=== PATIENT | female | born 1960 | race Two or more races ===

== ENCOUNTER 2017-03-31 19:42 | Emergency (ER) | payer MEDICAID ==
[~2017-03-31] VITALS: Ht 157.5 cm; Wt 83.9 kg
[2017-03-31 21:02] LABS: Urine Bilirubin Negative (Negative); Urine Blood TRACE /uL (Negative); Urine Color Yellow (Yellow); Urine Glucose 4+ mg/dL (Normal); Urine Ketone Negative (Negative); Urine Nitrite Negative (Negative); Urine RBC 2 /hpf (0 - 4); Urine Squamous Epithelial Cell FEW /hpf (<5); Urine Urobilinogen Normal (Negative); Urine pH 5.5 (5.0-8.0)
[2017-03-31 21:05] LABS: Basophils # (auto) 0.1 uL; Basophils % (auto) 1.2 % (0.0-2.0); Eosinophils # (auto) 0.4 uL; Eosinophils % (auto) 3.8 % (0.0-7.0); Hematocrit 44.6 % (36.0-46.0); Hemoglobin 14.7 g/dL (12.2-16.2); Lymphocytes # (auto) 1.8 uL; Mean Corpuscular Hemoglobin 26.5 pg (28.0-32.0); Mean Corpuscular Hgb Conc. 33.1 g/dL (32.0-36.0); Mean Corpuscular Volume 80.1 fL (80.0-100.0); Mean Platelet Volume 7.8 fL (6.9-10.8); Monocytes # (auto) 0.6 uL; Monocytes % (auto) 6.4 % (0.0-12.0); Neutrophils # (auto) 6.7 uL; Neutrophils % (auto) 69.6 % (37.0-80.0); Platelet Count (auto) 357 10^3/uL (140-450); Red Cell Distribution Width 13.7 % (11.8-14.3); White Blood Cell 9.7 10^3/uL (4.4-10.8)
[2017-03-31 21:14] LABS: Albumin 3.3 g/dL (3.4-5.0); Alkaline Phosphatase 177 U/L (45-117); Anion Gap 8 (5-15); Aspartate Aminotransferase 143 U/L (15-37); BUN/Creatinine Ratio 17.8; Bilirubin, Total 0.2 mg/dL (0.2-1.0); Blood Urea Nitrogen 13 mg/dL (7-18); Carbon Dioxide 23 mmol/L (21-32); Chloride 103 mmol/L (98-107); GFR African American 106 mL/min; GFR Non-African American 88 mL/min; Glucose 346 mg/dL (74-106); Sodium 134 mmol/L (136-145); Total Protein 8.8 g/dL (6.4-8.2)
[2017-03-31 21:16] LABS: Prothrombin Time 10.9 sec (9.37-12.3)
[2017-03-31 21:23] LABS: B-Type Natriuretic Peptide 42.98 pg/mL (0-100)
[2017-03-31 21:30] LABS: Temperature: 23.7 C (20.0-25.0)
[2017-04-01 00:26] VITALS: BP 142/81
== END 2017-04-01 02:17 | disposition home or self-care (01) ==
LOC: ER 19:52
DX: S46.912A Strain of unspecified muscle, fascia and tendon at shoulder and upper arm level, left arm, initial encounter (principal); E11.65 Type 2 diabetes mellitus with hyperglycemia; N39.0 Urinary tract infection, site not specified; R06.02 Shortness of breath; X58.XXXA Exposure to other specified factors, initial encounter; Y93.89 Activity, other specified; Y99.8 Other external cause status; Y92.89 Other specified places as the place of occurrence of the external cause
CPT/HCPCS: 36415; 71010; 80053; 81001; 82010; 82962; 83036; 83880; 84484; 85025; 85610; 85730; 93005; 99285; J7030

== ENCOUNTER 2023-05-10 10:37 | Inpatient (IN) | payer MEDICAID ==
[2023-05-10] VITALS (8 sets, daily range): BP systolic 140–159; BP diastolic 40–64; PULSE 69–78; RESP 15–100; TEMP 97.8–98.6; O2SAT 97–100
[~2023-05-10] VITALS: Ht 157.5 cm; Wt 78.2 kg
[2023-05-10 11:50] LABS: Mean Corpuscular Volume 52.4 fL (80.0-100.0); Monocytes # (auto) 0.5 10 ^3/uL (0-1.3); Neutrophils # (auto) 6.1 10 ^3/uL (1.6-8.6); Nucleated Red Blood Cells % 0.1 %
[2023-05-10 11:52] LABS: Basophils # (auto) 0.2 10 ^3/uL (0-0.2); Basophils % (auto) 2.1 % (0.0-2.0); Eosinophils # (auto) 0.4 10 ^3/uL (0-0.8); Eosinophils % (auto) 4.5 % (0.0-7.0); Hematocrit 20.3 % (36.0-46.0); Lymphocytes # (auto) 2.1 10 ^3/uL (0.4-5.4); Lymphocytes % (auto) 22.9 % (10.0-50.0); Mean Corpuscular Hemoglobin 14.9 pg (28.0-32.0); Mean Corpuscular Hgb Conc. 28.4 g/dL (32.0-36.0); Monocytes % (auto) 5.1 % (0.0-12.0); Neutrophils % (auto) 65.4 % (37.0-80.0); Red Blood Cells 3.88 10^6/uL (4.0-5.20); Red Cell Distribution Width 18.8 % (11.8-14.3); White Blood Cell 9.4 10^3/uL (4.4-10.8)
[2023-05-10 12:04] LABS: Alkaline Phosphatase 98 U/L (46-116); Carbon Dioxide 23 mmol/L (20-30); Chloride 109 mmol/L (98-107); Glucose 176 mg/dL (74-106); Potassium 4.3 mmol/L (3.5-5.1)
[2023-05-10 12:05] LABS: Albumin 4.6 g/dL (3.2-4.8); Anion Gap 7 (5-15); Aspartate Aminotransferase 9 U/L (13-40); BUN/Creatinine Ratio 17.8 (10.0-20.0); Bilirubin, Total 0.4 mg/dL (0.2-1.0); Blood Urea Nitrogen 16 mg/dL (9-23); Sodium 139 mmol/L (136-145); Total Protein 7.5 g/dL (5.7-8.2)
[2023-05-10 12:06] LABS: Hemoglobin 5.8 g/dL (12.2-16.2)
[2023-05-10 12:13] LABS: Alanine Aminotransferase < 9 U/L (7-40)
[2023-05-10 12:55] LABS: INR 1.03 (0.9-1.15); Partial Thromboplastin Time 25.9 SEC (24.5-34.5); Prothrombin Time 10.8 sec (9.3-11.8)
[2023-05-10 13:17] LABS: Platelet Estimate Increased
[2023-05-10 13:19] LABS: Hypochromia Marked
[2023-05-10 14:01] LABS: Urine Bacteria NONE SEEN /hpf (None Seen); Urine Blood Negative /uL (Negative); Urine Clarity Clear (Clear); Urine Color Yellow (Yellow); Urine Hyaline Cast FEW /lpf (0 - 2); Urine Protein, UAD Negative (Negative); Urine Urobilinogen Normal (Negative); Urine WBC <1 /hpf (0 - 5); Urine pH 5.5 (5.0-8.0)
[2023-05-10] MEDS ORDERED: ONDANSETRON HCL 4 MG/2 ML VIAL IV PRN (17:15)
[2023-05-10] MEDS ORDERED: MORPHINE SULFATE INJ 2 MG/ml SYRG IV PRN ×2 (17:15)
[2023-05-10] MEDS ORDERED: NITROGLYCERIN 0.4 MG SL TAB SL PRN (17:15)
[2023-05-10] MEDS ORDERED: D5W/SOD CHL 0.45% 1,000 ML IV ONE (17:15)
[2023-05-10] MEDS ORDERED: DEXTROSE (50%) 50ML SYRG IV ONE (17:30)
[2023-05-10] MEDS: PANTOPRAZOLE 40mg/50ML NS AE 50 ML IV SCH ×2 (18:34→22:25)
[2023-05-10] MEDS ORDERED: ACCU-CHEK COMFORT CURVE STRIP VI ONE (22:00)
[2023-05-10] MEDS ORDERED: InsuLIN REG 1unit/0.01ml Soln (100units/ml) SC ONE (22:00)
[2023-05-11] VITALS (8 sets, daily range): BP systolic 119–149; BP diastolic 40–71; PULSE 58–75; RESP 11–22; TEMP 97.8–98; O2SAT 99–100
[2023-05-11] MEDS: PANTOPRAZOLE 40mg/50ML NS AE 50 ML IV SCH ×5 (03:15→23:14)
[2023-05-11] MEDS ORDERED: PANTOPRAZOLE 40 MG/10 ML VIAL INJ IV ONE (04:21)
[2023-05-11 05:18] LABS: Eosinophils # (auto) 0.4 10 ^3/uL (0-0.8); Lymphocytes # (auto) 1.8 10 ^3/uL (0.4-5.4); Monocytes # (auto) 0.7 10 ^3/uL (0-1.3); White Blood Cell 9.7 10^3/uL (4.4-10.8)
[2023-05-11 05:20] LABS: Basophils # (auto) 0.1 10 ^3/uL (0-0.2); Eosinophils % (auto) 4.4 % (0.0-7.0); Hematocrit 28.4 % (36.0-46.0); Hemoglobin 8.2 g/dL (12.2-16.2); Lymphocytes % (auto) 18.8 % (10.0-50.0); Mean Corpuscular Hemoglobin 17.5 pg (28.0-32.0); Mean Corpuscular Hgb Conc. 28.9 g/dL (32.0-36.0); Mean Corpuscular Volume 60.5 fL (80.0-100.0); Neutrophils # (auto) 6.7 10 ^3/uL (1.6-8.6); Neutrophils % (auto) 68.8 % (37.0-80.0)
[2023-05-11 05:21] LABS: Red Cell Distribution Width 29.3 % (11.8-14.3)
[2023-05-11 05:39] LABS: Albumin 4.2 g/dL (3.2-4.8); Alkaline Phosphatase 100 U/L (46-116); Anion Gap 8 (5-15); Aspartate Aminotransferase 14 U/L (13-40); BUN/Creatinine Ratio 13.5 (10.0-20.0); Blood Urea Nitrogen 10 mg/dL (9-23); Calcium 8.9 mg/dL (8.7-10.4); Carbon Dioxide 21 mmol/L (20-30); Chloride 110 mmol/L (98-107); Glucose 82 mg/dL (74-106); Sodium 139 mmol/L (136-145)
[2023-05-11 05:40] LABS: Alanine Aminotransferase < 9 U/L (7-40); Bilirubin, Total 1.2 mg/dL (0.2-1.0)
[2023-05-11 05:49] LABS: Anisocytosis Marked; Hypochromia Marked; Platelet Estimate Adequate; Stomatocytes Few
[2023-05-11] MEDS ORDERED: DEXTROSE (50%) 50ML SYRG IV PRN (15:45)
[2023-05-11] MEDS: LISINOPRIL 20 MG TAB PO SCH (15:56)
[2023-05-11] MEDS: ACCU-CHEK COMFORT CURVE STRIP VI SCH ×2 (17:00→22:40)
[2023-05-11] MEDS: InsuLIN REG 1unit/0.01ml Soln (100units/ml) SC SCH ×2 (17:00→22:00)
[2023-05-12] VITALS (9 sets, daily range): BP systolic 101–117; BP diastolic 44–94; PULSE 62–80; RESP 13–18; TEMP 97.2–98.1; O2SAT 95–100
[2023-05-12] MEDS: PANTOPRAZOLE 40mg/50ML NS AE 50 ML IV SCH ×2 (05:19→09:01)
[2023-05-12 06:03] LABS: Basophils # (auto) 0.1 10 ^3/uL (0-0.2); Eosinophils # (auto) 0.5 10 ^3/uL (0-0.8); Hemoglobin 8.4 g/dL (12.2-16.2); Monocytes # (auto) 0.7 10 ^3/uL (0-1.3)
[2023-05-12 06:04] LABS: Chloride 109 mmol/L (98-107); Potassium 4.1 mmol/L (3.5-5.1); Sodium 140 mmol/L (136-145)
[2023-05-12 06:05] LABS: Anion Gap 9 (5-15); Basophils % (auto) 1.2 % (0.0-2.0); Calcium 9.1 mg/dL (8.5-10.1); Carbon Dioxide 22 mmol/L (20-30); Eosinophils % (auto) 5.1 % (0.0-7.0); Hematocrit 28.2 % (36.0-46.0); Lymphocytes % (auto) 20.1 % (10.0-50.0); Mean Corpuscular Hemoglobin 17.8 pg (28.0-32.0); Mean Corpuscular Hgb Conc. 29.7 g/dL (32.0-36.0); Mean Corpuscular Volume 59.8 fL (80.0-100.0); Monocytes % (auto) 7.2 % (0.0-12.0); Neutrophils # (auto) 6.7 10 ^3/uL (1.6-8.6); Neutrophils % (auto) 66.4 % (37.0-80.0); Nucleated Red Blood Cells % 0.1 %; Red Blood Cells 4.71 10^6/uL (4.0-5.20)
[2023-05-12 06:09] LABS: Red Cell Distribution Width 30.1 % (11.8-14.3)
[2023-05-12 06:10] LABS: Blood Urea Nitrogen 9 mg/dL (9-23); Glucose 123 mg/dL (74-106); Triglycerides 160 mg/dL (< 150)
[2023-05-12 06:11] LABS: LDL Cholesterol 102 mg/dL (< 100)
[2023-05-12 06:12] LABS: Cholesterol 154 mg/dL (< 200); HDL Cholesterol 25 mg/dL (40-59)
[2023-05-12] MEDS: InsuLIN REG 1unit/0.01ml Soln (100units/ml) SC SCH ×4 (06:24→22:21)
[2023-05-12] MEDS: ACCU-CHEK COMFORT CURVE STRIP VI SCH ×4 (06:24→22:04)
[2023-05-12 06:58] LABS: Anisocytosis Marked; Hypochromia Marked; Platelet Estimate Adequate
[2023-05-12 06:59] LABS: Ovalocytes FEW; Target Cell FEW
[2023-05-12] MEDS: LISINOPRIL 20 MG TAB PO SCH (09:02)
[2023-05-12] MEDS ORDERED: NALOXONE HCL 0.4 MG/ML VIAL ONE (11:19)
[2023-05-12] MEDS ORDERED: SODIUM CHLORIDE LOCK 10 ML ONE (11:19)
[2023-05-12] MEDS ORDERED: FLUMAZENIL 0.1 MG/ML INJ 10ML MDV IV ONE (11:19)
[2023-05-12] MEDS ORDERED: LIDOCAINE VISCOUS 2% 15ML UD ONE (11:19)
[2023-05-12] MEDS ORDERED: MIDAZOLAM HCL 5 MG/ML-1ML VIAL ONE (11:20)
[2023-05-12] MEDS ORDERED: fentaNYL CITRATE 100 MCG/2 ML VL ONE (11:21)
[2023-05-12] MEDS: diphenhdrAMINE HCL 50 MG/1 ML VL ONE ×2 (12:47→12:50)
[2023-05-12] MEDS: SUCRALFATE 1 GM/10 ML ORAL SUSP PO SCH ×2 (16:41→21:54)
[2023-05-12] MEDS: PANTOPRAZOLE 40 MG TAB PO SCH (21:54)
[2023-05-13 05:00] VITALS: BP 92/55; PULSE 64; RESP 16; TEMP 98.2; O2SAT 95
[2023-05-13] MEDS: InsuLIN REG 1unit/0.01ml Soln (100units/ml) SC SCH ×2 (06:42→12:29)
[2023-05-13] MEDS: ACCU-CHEK COMFORT CURVE STRIP VI SCH ×2 (06:51→11:19)
[2023-05-13] MEDS: SUCRALFATE 1 GM/10 ML ORAL SUSP PO SCH ×2 (06:51→11:13)
[2023-05-13 08:30] VITALS: PULSE 58
[2023-05-13 09:00] VITALS: BP 90/48; PULSE 49; RESP 18; TEMP 99.2; O2SAT 95
[2023-05-13] MEDS: PANTOPRAZOLE 40 MG TAB PO SCH (11:13)
[2023-05-13] MEDS: LISINOPRIL 20 MG TAB PO SCH (11:19)
[2023-05-13] MEDS ORDERED: PANT40T PO (11:31)
[2023-05-13] MEDS ORDERED: SUCR1TAB PO (11:31)
== END 2023-05-13 12:30 | disposition home or self-care (01) | DRG 241 ==
LOC: ER 10:37 → EEVIPCON 17:14 → TELE 17:14 → TELE-EAST 05-11 21:17
PROVIDERS: ADMIT Nurse Practitioner; ATTEND Nurse Practitioner
PROC: 30233N1 Transfusion of Nonautologous Red Blood Cells into Peripheral Vein, Percutaneous Approach (ICD-10-PCS; 2023-05-10)
PROC: 0DB68ZX Excision of Stomach, Via Natural or Artificial Opening Endoscopic, Diagnostic (ICD-10-PCS; 2023-05-12)
PROC: 0DB68ZZ Excision of Stomach, Via Natural or Artificial Opening Endoscopic (ICD-10-PCS; 2023-05-12)
PROC: 0DB98ZX Excision of Duodenum, Via Natural or Artificial Opening Endoscopic, Diagnostic (ICD-10-PCS; principal; 2023-05-12 12:40)
DX: K29.71 Gastritis, unspecified, with bleeding (principal); D62 Acute posthemorrhagic anemia; E11.65 Type 2 diabetes mellitus with hyperglycemia; K31.7 Polyp of stomach and duodenum
CPT/HCPCS: 36415; 43239; 43250; 71045; 74176; 80048; 80053; 80061; 81001; 82962; 83036; 84484; 85025; 85610; 85730; 86850; 86900; 86901; 86920; 99291; C9113; G0378; J1815; J2250

== ENCOUNTER 2023-07-30 07:32 | Inpatient (IN) | payer MEDICAID, OTHER ==
[~2023-07-30] VITALS: Ht 157.5 cm; Wt 77.8 kg
[~2023-07-30 07:32] MED LIST: PANT40T PO; SUCR1TAB PO
[2023-07-30 08:28] LABS: Basophils # (auto) 0.2 10 ^3/uL (0-0.2); Eosinophils # (auto) 0.5 10 ^3/uL (0-0.8); Monocytes # (auto) 0.4 10 ^3/uL (0-1.3); Neutrophils # (auto) 5.2 10 ^3/uL (1.6-8.6); White Blood Cell 8.1 10^3/uL (4.4-10.8)
[2023-07-30 08:31] LABS: Eosinophils % (auto) 6.3 % (0.0-7.0); Hematocrit 21.8 % (36.0-46.0); Lymphocytes # (auto) 1.7 10 ^3/uL (0.4-5.4); Lymphocytes % (auto) 21.6 % (10.0-50.0); Mean Corpuscular Hemoglobin 16.4 pg (28.0-32.0); Mean Corpuscular Hgb Conc. 28.4 g/dL (32.0-36.0); Monocytes % (auto) 5.4 % (0.0-12.0); Neutrophils % (auto) 64.7 % (37.0-80.0); Red Blood Cells 3.77 10^6/uL (4.0-5.20); Red Cell Distribution Width 19.3 % (11.8-14.3)
[2023-07-30 08:41] LABS: Hemoglobin 6.2 g/dL (12.2-16.2)
[2023-07-30 08:42] LABS: Albumin 4.3 g/dL (3.2-4.8); Alkaline Phosphatase 109 U/L (46-116); Anion Gap 6 (5-15); Aspartate Aminotransferase 13 U/L (13-40); BUN/Creatinine Ratio 25.3 (10.0-20.0); Bilirubin, Total 0.3 mg/dL (0.2-1.0); Blood Urea Nitrogen 20 mg/dL (9-23); Calcium 8.7 mg/dL (8.7-10.4); Carbon Dioxide 22 mmol/L (20-30); Chloride 110 mmol/L (98-107); Glucose 189 mg/dL (74-106); Magnesium 1.9 mg/dL (1.6-2.6); Potassium 4.2 mmol/L (3.5-5.1); Sodium 138 mmol/L (136-145); Total Protein 7.4 g/dL (5.7-8.2)
[2023-07-30 08:43] LABS: INR 1.04 (0.9-1.15); Partial Thromboplastin Time 27.3 SEC (24.5-34.5); Prothrombin Time 10.9 sec (9.3-11.8)
[2023-07-30 08:45] LABS: Alanine Aminotransferase 9 U/L (7-40)
[2023-07-30] MEDS ORDERED: PANTOPRAZOLE 40 MG/10 ML VIAL INJ IV ONE (09:00)
[2023-07-30] MEDS ORDERED: IOHEXOL 300 MG/ML 100ML BOTTLE IJ ONE (09:03)
[2023-07-30 09:35] VITALS: PULSE 79; RESP 18; O2SAT 98
[2023-07-30 09:45] VITALS: BP 139/55; PULSE 76; RESP 12; TEMP 97.6
[2023-07-30 10:00] VITALS: BP 128/42; PULSE 70; RESP 16; TEMP 97.6
[2023-07-30 11:26] LABS: Platelet Estimate Increased
[2023-07-30 11:27] LABS: Hypochromia Marked; Ovalocytes MODERATE
[2023-07-30 13:45] VITALS: BP 151/52; PULSE 71; RESP 12; TEMP 97.8
[2023-07-30 15:08] LABS: Eosinophils # (auto) 0.6 10 ^3/uL (0-0.8); Lymphocytes # (auto) 2.4 10 ^3/uL (0.4-5.4); Monocytes # (auto) 0.8 10 ^3/uL (0-1.3)
[2023-07-30 15:09] LABS: Basophils # (auto) 0.2 10 ^3/uL (0-0.2); Basophils % (auto) 1.9 % (0.0-2.0); Eosinophils % (auto) 5.9 % (0.0-7.0); Hematocrit 26.5 % (36.0-46.0); Hemoglobin 7.9 g/dL (12.2-16.2); Lymphocytes % (auto) 24.1 % (10.0-50.0); Mean Corpuscular Hemoglobin 19.2 pg (28.0-32.0); Mean Corpuscular Hgb Conc. 29.7 g/dL (32.0-36.0); Mean Corpuscular Volume 64.9 fL (80.0-100.0); Monocytes % (auto) 8.2 % (0.0-12.0); Neutrophils # (auto) 5.9 10 ^3/uL (1.6-8.6); Neutrophils % (auto) 59.9 % (37.0-80.0); Red Blood Cells 4.08 10^6/uL (4.0-5.20); White Blood Cell 9.9 10^3/uL (4.4-10.8)
[2023-07-30 15:14] LABS: Red Cell Distribution Width 25.8 % (11.8-14.3)
[2023-07-30 18:30] LABS: Alanine Aminotransferase 10 U/L (7-40); Albumin 4.5 g/dL (3.2-4.8); Alkaline Phosphatase 114 U/L (46-116); Anion Gap 6 (5-15); Aspartate Aminotransferase 15 U/L (13-40); BUN/Creatinine Ratio 22.1 (10.0-20.0); Bilirubin, Total 0.3 mg/dL (0.2-1.0); Blood Urea Nitrogen 17 mg/dL (9-23); Calcium 9.3 mg/dL (8.7-10.4); Carbon Dioxide 23 mmol/L (20-30); Chloride 110 mmol/L (98-107); Glucose 176 mg/dL (74-106); Potassium 4.1 mmol/L (3.5-5.1); Sodium 139 mmol/L (136-145); Total Protein 7.9 g/dL (5.7-8.2)
[2023-07-30] MEDS ORDERED: MORPHINE SULFATE INJ 2 MG/ml SYRG IV PRN (18:45)
[2023-07-30] MEDS ORDERED: NITROGLYCERIN 0.4 MG SL TAB SL PRN (18:45)
[2023-07-30] MEDS: SODIUM CHLORIDE 0.9% 1,000 ML IV SCH (21:00)
[2023-07-30] MEDS ORDERED: hydrALAZINE HCL 20 MG/ML VL IV PRN (22:00)
[2023-07-30] MEDS: PANTOPRAZOLE 40 MG/10 ML VIAL INJ IV SCH (22:00)
[2023-07-30] MEDS ORDERED: METF-370 PO (22:42)
[2023-07-30] MEDS ORDERED: GLIP5TAB12 PO (22:42)
[2023-07-30 22:51] VITALS: PULSE 78; RESP 16; O2SAT 98
[2023-07-31 05:00] VITALS: BP 130/55; PULSE 68; RESP 18; TEMP 98; O2SAT 100
[2023-07-31 05:56] LABS: Basophils # (auto) 0.1 10 ^3/uL (0-0.2); Hemoglobin 7.7 g/dL (12.2-16.2); Lymphocytes # (auto) 2.3 10 ^3/uL (0.4-5.4); Mean Corpuscular Volume 62.2 fL (80.0-100.0); Monocytes # (auto) 0.6 10 ^3/uL (0-1.3); Monocytes % (auto) 6.5 % (0.0-12.0)
[2023-07-31 05:58] LABS: Basophils % (auto) 1.6 % (0.0-2.0); Eosinophils # (auto) 0.6 10 ^3/uL (0-0.8); Eosinophils % (auto) 6.6 % (0.0-7.0); Hematocrit 25.6 % (36.0-46.0); Lymphocytes % (auto) 25.3 % (10.0-50.0); Mean Corpuscular Hemoglobin 18.7 pg (28.0-32.0); Mean Corpuscular Hgb Conc. 30.1 g/dL (32.0-36.0); Neutrophils # (auto) 5.4 10 ^3/uL (1.6-8.6); Red Blood Cells 4.11 10^6/uL (4.0-5.20)
[2023-07-31 06:07] LABS: Red Cell Distribution Width 24.9 % (11.8-14.3)
[2023-07-31 06:08] LABS: Alanine Aminotransferase 10 U/L (7-40); Alkaline Phosphatase 100 U/L (46-116); Anion Gap 8 (5-15); Aspartate Aminotransferase 21 U/L (13-40); BUN/Creatinine Ratio 20.9 (10.0-20.0); Bilirubin, Total 0.5 mg/dL (0.2-1.0); Blood Urea Nitrogen 14 mg/dL (9-23); Calcium 8.8 mg/dL (8.7-10.4); Carbon Dioxide 22 mmol/L (20-30); Chloride 110 mmol/L (98-107); Glucose 132 mg/dL (74-106); Potassium 4.4 mmol/L (3.5-5.1); Sodium 140 mmol/L (136-145); Total Protein 6.9 g/dL (5.7-8.2)
[2023-07-31] MEDS ORDERED: DEXTROSE (50%) 50ML SYRG IV PRN (06:15)
[2023-07-31] MEDS: InsuLIN REG 1unit/0.01ml Soln (100units/ml) SC SCH ×4 (06:53→22:00)
[2023-07-31] MEDS: ACCU-CHEK COMFORT CURVE STRIP VI SCH ×4 (06:54→22:00)
[2023-07-31 08:00] VITALS: BP 158/68; PULSE 88; RESP 17; TEMP 98.2; O2SAT 98
[2023-07-31 09:05] VITALS: BP 157/68; PULSE 70; RESP 17; TEMP 98.2; O2SAT 98
[2023-07-31] MEDS: PANTOPRAZOLE 40 MG/10 ML VIAL INJ IV SCH ×2 (10:00→22:00)
[2023-07-31] MEDS: SODIUM CHLORIDE 0.9% 1,000 ML IV SCH (11:25)
[2023-07-31] MEDS ORDERED: GADOTERATE MEG 10 MMOL/20ml INJ (0.5MMOL/ml) IV ONE (12:16)
[2023-07-31] MEDS ORDERED: GOLYTELY 4L KIT PO ONE (12:45)
[2023-07-31 17:02] VITALS: BP 159/65; PULSE 66; RESP 17; O2SAT 98
[2023-07-31 19:30] VITALS: PULSE 85; RESP 19; O2SAT 97
[2023-07-31 22:00] VITALS: BP 165/73; PULSE 65; RESP 16; TEMP 97.5; O2SAT 100
[2023-08-01] VITALS (9 sets, daily range): BP systolic 95–152; BP diastolic 49–70; PULSE 69–88; RESP 16–19; TEMP 97.6–98.2; O2SAT 96–100
[2023-08-01] MEDS: SODIUM CHLORIDE 0.9% 1,000 ML IV SCH (05:55)
[2023-08-01] MEDS ORDERED: GOLYTELY 4L KIT PO ONE (06:00)
[2023-08-01] MEDS: InsuLIN REG 1unit/0.01ml Soln (100units/ml) SC SCH ×4 (06:01→22:00)
[2023-08-01] MEDS: ACCU-CHEK COMFORT CURVE STRIP VI SCH ×4 (06:02→22:00)
[2023-08-01 06:44] LABS: Basophils # (auto) 0.1 10 ^3/uL (0-0.2); Eosinophils # (auto) 0.6 10 ^3/uL (0-0.8); Hemoglobin 8.2 g/dL (12.2-16.2); Monocytes # (auto) 0.6 10 ^3/uL (0-1.3)
[2023-08-01 06:48] LABS: Basophils % (auto) 1.4 % (0.0-2.0); Eosinophils % (auto) 6.6 % (0.0-7.0); Hematocrit 27.5 % (36.0-46.0); Lymphocytes # (auto) 1.5 10 ^3/uL (0.4-5.4); Lymphocytes % (auto) 16.4 % (10.0-50.0); Mean Corpuscular Hemoglobin 18.7 pg (28.0-32.0); Mean Corpuscular Hgb Conc. 29.9 g/dL (32.0-36.0); Mean Corpuscular Volume 62.7 fL (80.0-100.0); Monocytes % (auto) 6.2 % (0.0-12.0); Neutrophils # (auto) 6.4 10 ^3/uL (1.6-8.6); Neutrophils % (auto) 69.4 % (37.0-80.0); Red Blood Cells 4.39 10^6/uL (4.0-5.20); White Blood Cell 9.2 10^3/uL (4.4-10.8)
[2023-08-01 06:53] LABS: Red Cell Distribution Width 23.2 % (11.8-14.3)
[2023-08-01 07:11] LABS: Alanine Aminotransferase 15 U/L (7-40); Albumin 4.3 g/dL (3.2-4.8); Alkaline Phosphatase 114 U/L (46-116); Anion Gap 6 (5-15); Aspartate Aminotransferase 20 U/L (13-40); BUN/Creatinine Ratio 11.3 (10.0-20.0); Bilirubin, Total 0.6 mg/dL (0.2-1.0); Blood Urea Nitrogen 9 mg/dL (9-23); Calcium 9.3 mg/dL (8.5-10.1); Carbon Dioxide 23 mmol/L (20-30); Chloride 109 mmol/L (98-107); Glucose 139 mg/dL (74-106); Sodium 138 mmol/L (136-145); Total Protein 7.6 g/dL (5.7-8.2)
[2023-08-01 07:32] LABS: INR 1.04 (0.9-1.15); Prothrombin Time 10.9 sec (9.3-11.8)
[2023-08-01 08:26] LABS: Anisocytosis Moderate; Hypochromia Moderate; Platelet Estimate Increased
[2023-08-01] MEDS: PANTOPRAZOLE 40 MG/10 ML VIAL INJ IV SCH ×2 (11:10→22:00)
[2023-08-01] MEDS ORDERED: FLUMAZENIL 0.1 MG/ML INJ 10ML MDV IV ONE (13:04)
[2023-08-01] MEDS ORDERED: SODIUM CHLORIDE LOCK 10 ML ONE (13:04)
[2023-08-01] MEDS ORDERED: NALOXONE HCL 0.4 MG/ML VIAL ONE (13:04)
[2023-08-01] MEDS ORDERED: diphenhdrAMINE HCL 50 MG/1 ML VL ONE (13:05)
[2023-08-01] MEDS: MIDAZOLAM HCL 5 MG/ML-1ML VIAL ONE ×3 (13:42→13:53)
[2023-08-01] MEDS: fentaNYL CITRATE 100 MCG/2 ML VL ONE ×2 (13:42→13:46)
[2023-08-02 05:00] VITALS: BP 115/57; PULSE 79; RESP 16; TEMP 97.9; O2SAT 98
[2023-08-02] MEDS: SODIUM CHLORIDE 0.9% 1,000 ML IV SCH (05:35)
[2023-08-02] MEDS: InsuLIN REG 1unit/0.01ml Soln (100units/ml) SC SCH ×2 (06:04→11:30)
[2023-08-02] MEDS: ACCU-CHEK COMFORT CURVE STRIP VI SCH ×2 (06:05→11:40)
[2023-08-02 08:00] VITALS: PULSE 66; RESP 20; O2SAT 100
[2023-08-02 08:44] VITALS: BP 123/49; PULSE 66; RESP 19; TEMP 97.7; O2SAT 100
[2023-08-02] MEDS: PANTOPRAZOLE 40 MG/10 ML VIAL INJ IV SCH (10:54)
[2023-08-02 12:36] VITALS: BP 138/64; PULSE 78; RESP 19; TEMP 98; O2SAT 98
[2023-08-02 15:15] LABS: Eosinophils # (auto) 0.5 10 ^3/uL (0-0.8); Hemoglobin 8.7 g/dL (12.2-16.2); Lymphocytes # (auto) 1.8 10 ^3/uL (0.4-5.4); Mean Corpuscular Hgb Conc. 29.1 g/dL (32.0-36.0); Mean Corpuscular Volume 62.7 fL (80.0-100.0); Monocytes # (auto) 0.7 10 ^3/uL (0-1.3); Nucleated Red Blood Cells % 0.1 %; White Blood Cell 11.8 10^3/uL (4.4-10.8)
[2023-08-02 15:18] LABS: Basophils # (auto) 0.1 10 ^3/uL (0-0.2); Basophils % (auto) 0.7 % (0.0-2.0); Eosinophils % (auto) 3.9 % (0.0-7.0); Hematocrit 29.8 % (36.0-46.0); Lymphocytes % (auto) 15.6 % (10.0-50.0); Mean Corpuscular Hemoglobin 18.2 pg (28.0-32.0); Monocytes % (auto) 5.5 % (0.0-12.0); Neutrophils # (auto) 8.8 10 ^3/uL (1.6-8.6); Neutrophils % (auto) 74.3 % (37.0-80.0); Red Blood Cells 4.75 10^6/uL (4.0-5.20)
[2023-08-02 15:33] LABS: Red Cell Distribution Width 22.3 % (11.8-14.3)
[2023-08-02 15:34] LABS: Alanine Aminotransferase 11 U/L (7-40); Alkaline Phosphatase 117 U/L (46-116); Anion Gap 8 (5-15); Aspartate Aminotransferase 18 U/L (13-40); BUN/Creatinine Ratio 8.5 (10.0-20.0); Blood Urea Nitrogen 8 mg/dL (9-23); Calcium 9.6 mg/dL (8.5-10.1); Carbon Dioxide 20 mmol/L (20-30); Chloride 109 mmol/L (98-107); Glucose 192 mg/dL (74-106); Potassium 4.3 mmol/L (3.5-5.1); Sodium 137 mmol/L (136-145)
[2023-08-02 15:35] LABS: Albumin 4.6 g/dL (3.2-4.8); Bilirubin, Total 0.5 mg/dL (0.2-1.0)
[2023-08-02 16:18] LABS: Anisocytosis Slight; Hypochromia Marked; Platelet Estimate Increased
[2023-08-02 16:19] LABS: Large Platelets FEW
[2023-08-02 16:40] VITALS: BP 138/64; PULSE 78; RESP 18; TEMP 98; O2SAT 98
[2023-08-02 17:00] VITALS: BP 111/57; PULSE 85; RESP 21; TEMP 97.9; O2SAT 100
== END 2023-08-02 18:21 | disposition home or self-care (01) | DRG 378 ==
LOC: EEVIPCON 07:32 → ER 07:32 → OVERFLOW 18:42 → WEST WING 21:20 → OBSVTOIN 08-01 16:18
PROVIDERS: ADMIT Student in an Organized Health Care Education/Training Program; ATTEND Student in an Organized Health Care Education/Training Program
PROC: 30233N1 Transfusion of Nonautologous Red Blood Cells into Peripheral Vein, Percutaneous Approach (ICD-10-PCS; 2023-07-30)
PROC: 0DBP8ZX Excision of Rectum, Via Natural or Artificial Opening Endoscopic, Diagnostic (ICD-10-PCS; principal; 2023-08-01 13:36)
DX: K92.2 Gastrointestinal hemorrhage, unspecified (principal); C20 Malignant neoplasm of rectum; K63.5 Polyp of colon; D75.839 Thrombocytosis, unspecified; I10 Essential (primary) hypertension; D50.9 Iron deficiency anemia, unspecified; E11.9 Type 2 diabetes mellitus without complications; Z83.3 Family history of diabetes mellitus
CPT/HCPCS: 36415; 45380; 71260; 72195; 74177; 80053; 82270; 82378; 82962; 83735; 85025; 85610; 85730; 86304; 86850; 86900; 86901; 86920; 96374; C9113; G0378; J1815; J2250

== ENCOUNTER 2023-12-13 08:07 | Day surgery (SDC) | payer MEDICAID ==
[2023-12-10 11:31] LABS: Basophils # (auto) 0 10 ^3/uL (0-0.2); Basophils % (auto) 1.1 % (0.0-2.0); Eosinophils # (auto) 0.1 10 ^3/uL (0-0.8); Eosinophils % (auto) 3.6 % (0.0-7.0); Hematocrit 39.5 % (36.0-46.0); Hemoglobin 13.2 g/dL (12.2-16.2); Lymphocytes # (auto) 0.5 10 ^3/uL (0.4-5.4); Lymphocytes % (auto) 13.7 % (10.0-50.0); Mean Corpuscular Hgb Conc. 33.5 g/dL (32.0-36.0); Mean Corpuscular Volume 83.5 fL (80.0-100.0); Monocytes # (auto) 0.5 10 ^3/uL (0-1.3); Monocytes % (auto) 11.6 % (0.0-12.0); Neutrophils # (auto) 2.7 10 ^3/uL (1.6-8.6); Nucleated Red Blood Cells % 0.2 %; Red Blood Cells 4.74 10^6/uL (4.0-5.20); Red Cell Distribution Width 16.5 % (11.8-14.3); White Blood Cell 3.9 10^3/uL (4.4-10.8)
[2023-12-10 11:51] LABS: INR 1.03 (0.9-1.15); Partial Thromboplastin Time 28.2 SEC (24.5-34.5); Prothrombin Time 10.9 sec (9.3-11.8)
[2023-12-10 11:53] LABS: Anion Gap 4 (5-15); Carbon Dioxide 28 mmol/L (20-30); Chloride 107 mmol/L (98-107); Potassium 4.3 mmol/L (3.5-5.1); Sodium 139 mmol/L (136-145)
[2023-12-10 11:54] LABS: Calcium 9.9 mg/dL (8.5-10.1)
[2023-12-10 11:59] LABS: BUN/Creatinine Ratio 26.6 (10.0-20.0); Blood Urea Nitrogen 21 mg/dL (9-23); Glucose 178 mg/dL (74-106)
[2023-12-10 12:12] LABS: Platelet Estimate Adequate
[~2023-12-13] VITALS: Ht 154.9 cm; Wt 77.1 kg
[~2023-12-13 08:07] MED LIST changes: +CAPE1TAB11 PO; +GEMF-66 PO; +GLIM4TAB42 PO; +GLIP5TAB21 PO; +METF-370 PO; -PANT40T PO; -SUCR1TAB PO
[2023-12-13] MEDS ORDERED: METF-929 PO (08:34)
[2023-12-13] MEDS ORDERED: GLIM4TAB42 PO (08:34)
[2023-12-13] MEDS ORDERED: LISI10TA34 PO (08:34)
[2023-12-13] MEDS ORDERED: GEMF-66 PO (08:34)
[2023-12-13] MEDS ORDERED: fentaNYL CITRATE 100 MCG/2 ML VL ONE (11:26)
[2023-12-13] MEDS ORDERED: LIDOCAINE W/ EPINEPHRINE 2% INJ 20ML VIAL ONE (11:26)
[2023-12-13] MEDS ORDERED: MIDAZOLAM HCL 2MG/2ML 2ml VIAL (1mg/ml) ONE (11:26)
[2023-12-13] MEDS ORDERED: ceFAZolin 1GM/50ML 50 ML IV ONE (11:31)
[2023-12-13] MEDS ORDERED: HEPARIN 1,000 UNITS/ml 1ML VIAL ONE (12:23)
== END 2023-12-13 13:59 | disposition home or self-care (01) ==
LOC: CATH 08:07
PROVIDERS: ATTEND Radiology Diagnostic Radiology
DX: C20 Malignant neoplasm of rectum (principal); D50.9 Iron deficiency anemia, unspecified; Z83.3 Family history of diabetes mellitus; Z82.61 Family history of arthritis; Z82.5 Family history of asthma and other chronic lower respiratory diseases; Z80.9 Family history of malignant neoplasm, unspecified
CPT/HCPCS: 36415; 36561; 80048; 85025; 85610; 85730; 93005; C1788; C1894; J0690; J1644; J2250; J3010; J7040; 99152